=== PATIENT | male | born 1965 | race Caucasian/White ===

== ENCOUNTER 2017-07-13 17:18 | Emergency (ER) | payer OTHER ==
[2017-07-13] MEDS ORDERED: Ampicillin/Sulbactam 3 GM, Syringe 1.6 ML in Sterile Water 6.4 ML SLOW IVP SCH (17:30)
[2017-07-13] MEDS ORDERED: Adacel (T-DAP) 0.5 ML VIAL ONE (17:30)
[2017-07-13] MEDS ORDERED: Fentanyl 100 MCG/2 ML VIAL ONE (17:30)
[2017-07-13 17:51] LABS: #Eosinphils 0.1 thou/uL (0.0-0.7); #Lymphocytes 1.3 thou/uL (1.20-3.40); #Monocytes 0.6 thou/uL (0.11-0.59); #Neutrophils 11.9 thou/uL (1.40-6.50); %Basophils 0.3 % (0.0-1.0); %Eosinophils 0.5 % (0.0-10.0); %Monocytes 4.2 % (0.0-10.0); Hematocrit 45.7 % (42.0-52.0); Mean Platelet Volume 6.7 fL (7.4-10.4); Red Blood Cell (RBC) Count 4.94 mill/uL (4.70-6.10); White Blood Cell (WBC) Count 13.8 thou/uL (4.8-10.8)
[2017-07-13 18:11] LABS: ALT (SGPT) 45 U/L (8-55); AST (SGOT) 38 U/L (5-34); Alkaline Phosphatase 61 U/L (40-150); Anion Gap 16 mmol/L (10-20); BUN (Urea Nitrogen) 9 mg/dL (8.4-25.7); Bilirubin, Total 1.3 mg/dL (0.2-1.2); Calc. Creatinine Clearance 0 mL/min (70-130); Calcium 9.1 mg/dL (7.8-10.44); Carbon Dioxide 23 mmol/L (22-29); Chloride 99 mmol/L (98-107); Estimated GFR-MDRD Greater than 90; Globulin 3.2 g/dL (2.4-3.5); Protein, Total 7.7 g/dL (6.0-8.3)
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
[2017-07-13 18:13] LABS: Acetaminophen Less than 6.0 mcg/mL (10.0-30.0); Salicylate Less than 8.0 mg/dL (15.0-30.0)
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
[2017-07-13] MEDS ORDERED: levETIRAcetam 500 MG/100 ML PREMIX BAG ONE (18:21)
[2017-07-13] MEDS ORDERED: levETIRAcetam In NaCl (Iso-Os) 1,000 MG in Premix Bag 1 BAG IVPB SCH ×2 (18:30)
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
[2017-07-13] MEDS ORDERED: Morphine 4 MG/ML VIAL ONE ×2 (19:36→22:14)
[2017-07-13 20:49] LABS: Bilirubin Negative (Negative); Blood, Urine Negative (Negative); Glucose, Urine (Dipstick) Negative (Negative); Ketone, Urine Negative (Negative); Nitrite Negative (Negative); Protein, Urine (Dipstick) Negative (Neg-Trace); Urobilinogen 0.2 mg/dL (0.2-1.0)
[2017-07-13 20:59] LABS: Amphetamine Not Detected (NotDetected); Methadone Not Detected (NotDetected); Methamphetamine Not Detected (NotDetected)
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
--- NOTE | 2017-07-15 12:59 | EKG ---
Test Reason : Blood Pressure : / mmHG Vent. Rate : 094 BPM Atrial Rate : 094 BPM P-R Int : 168 ms QRS Dur : 074 ms QT Int : 342 ms P-R-T Axes : 048 108 050 degrees QTc Int : 427 ms Normal sinus rhythm Rightward axis Low voltage QRS Borderline ECG Confirmed by IGLESIA NAVARRO ([id number]), editorial cartoonist ALINA CHEN ([id number]) on 07/15/2017 12:58:44 PM Referred By: Confirmed By:IGLESIA NAVARRO
== END 2017-07-13 22:47 | disposition short-term general hospital (02) ==
LOC: ERS 17:18
DX: S02.69XA Fracture of mandible of other specified site, initial encounter for closed fracture (principal); I25.10 Atherosclerotic heart disease of native coronary artery without angina pectoris; E03.9 Hypothyroidism, unspecified; K21.9 Gastro-esophageal reflux disease without esophagitis; F31.9 Bipolar disorder, unspecified; Z79.899 Other long term (current) drug therapy; Y04.0XXA Assault by unarmed brawl or fight, initial encounter; Y92.149 Unspecified place in prison as the place of occurrence of the external cause
CPT/HCPCS: 36415; 51702; 70450; 70486; 71010; 72125; 80053; 80306; 80307; 81003; 84146; 85025; 86850; 86900; 86901; 90471; 90715; 93005; 94760; 96361; 96365; 96375; 96376; A4216; G0390; J0295; J1953; J2270; J3010